=== PATIENT | female | born 1995 | race Caucasian/White ===

== ENCOUNTER → 2016-10-31 | Outpatient (CLI) | payer BC, OTHER ==
[2016-10-31 14:42] LABS: Blood Urea Nitrogen 8 mg/dL (7-17); Lithium 0.5 mmol/L; Non-African American GFR(MDRD) >60 (>60 ml/min/1.73 sqM)
== END | disposition home or self-care (01) ==
LOC: LABWHC1 09:34
PROVIDERS: ATTEND Psychiatry & Neurology Psychiatry
DX: F32.9 Major depressive disorder, single episode, unspecified (principal)
CPT/HCPCS: 36415; 80178; 82565; 84439; 84443; 84520

== ENCOUNTER → 2017-04-10 | Outpatient (CLI) | payer BC, OTHER ==
[2017-04-10 12:43] LABS: Blood Urea Nitrogen 10 mg/dL (7-17); Lithium 0.4 mmol/L; Non-African American GFR(MDRD) >60 (>60 ml/min/1.73 sqM)
== END | disposition home or self-care (01) ==
LOC: LABWHC1 11:27
PROVIDERS: ATTEND Psychiatry & Neurology Psychiatry
DX: F32.9 Major depressive disorder, single episode, unspecified (principal)
CPT/HCPCS: 36415; 80178; 82565; 84443; 84520

== ENCOUNTER → 2017-08-14 | Outpatient (CLI) | payer BC, OTHER ==
[2017-08-14 10:57] LABS: Basophils % (A) 0 %; Eosinophils # (A) 0.2 k/uL (0-0.7); Eosinophils % (A) 2 %; HCT 44.8 % (34.0-46.0); Lymphocytes # (A) 2.1 k/uL (1.0-4.8); Lymphocytes % (A) 23 %; MCH 26.6 pg (25.0-35.0); MCHC 31.1 g/dL (31.0-37.0); MCV 85.4 fL (80.0-100.0); Mean Platelet Volume 6.6; Monocytes # (A) 0.6 k/uL (0-1.0); Monocytes % (A) 7 %; Neutrophils % (A) 67 %; Platelet Count 364 k/uL (150-450); RBC 5.25 m/uL (3.80-5.40); RDW 12.4 % (11.5-15.5); WBC 9.1 k/uL (3.8-10.6)
[2017-08-14 11:15] LABS: ALT 25 U/L (9-52); AST 20 U/L (14-36); Alkaline Phosphatase 89 U/L (38-126); Anion Gap 10 mmol/L; Blood Urea Nitrogen 8 mg/dL (7-17); Calcium 9.7 mg/dL (8.4-10.2); Carbon Dioxide 24 mmol/L (22-30); Chloride 107 mmol/L (98-107); Cholesterol 206 mg/dL (<200); Glucose 88 mg/dL (74-99); HDL Cholesterol 52 mg/dL (40-60); LDL Cholesterol,Calculated 123 mg/dL (0-99); Potassium 4.5 mmol/L (3.5-5.1); Sodium 141 mmol/L (137-145); Total Bilirubin 0.4 mg/dL (0.2-1.3); Total Protein 7.2 g/dL (6.3-8.2); Triglycerides 153 mg/dL (<150)
== END | disposition home or self-care (01) ==
LOC: LABWHC1 10:35
PROVIDERS: ATTEND Internal Medicine
DX: Z00.00 Encounter for general adult medical examination without abnormal findings (principal)
CPT/HCPCS: 36415; 80053; 80061; 84443; 85025

== ENCOUNTER → 2020-01-09 | Outpatient (CLI) | payer BC, OTHER ==
[2020-01-09 19:18] LABS: African American GFR (CKD) 140.6 (60.0-200.0); Lithium 0.3 mmol/L (0.5-1.2); Non-African American GFR(CKD) 121.3 (60.0-200.0)
== END | disposition home or self-care (01) ==
LOC: LABWHC1 09:35
PROVIDERS: ATTEND Psychiatry & Neurology Psychiatry
DX: F32.9 Major depressive disorder, single episode, unspecified (principal)
CPT/HCPCS: 36415; 80178; 82565; 84443; 84520